=== PATIENT | female | born 1960 | race Caucasian/White ===

== ENCOUNTER 2017-07-03 11:33 | Day surgery (SDC) | payer BC ==
[2017-06-30 10:42] LABS: APPEARANCE,URINE SLIGHTLY-CLOUDY; BILIRUBIN,URINE NEGATIVE (NEGATIVE); GLUCOSE, URINE NEGATIVE (NEGATIVE); KETONES,URINE NEGATIVE (NEGATIVE); LEUKOCYTE ESTERASE,URINE NEGATIVE (NEGATIVE); NITRITE,URINE NEGATIVE (NEGATIVE); PROTEIN,URINE NEGATIVE (NEGATIVE); UROBILINOGEN,URINE NEGATIVE mg/dL (<2.0)
[2017-06-30 10:49] LABS: ABSOLUTE EOSINOPHILS # (AUTO) 0.2 10^3/uL (0.0-0.6); ABSOLUTE LYMPHOCYTES (AUTO) 1.3 10^3/uL (0.5-4.7); ABSOLUTE MONOCYTES (AUTO) 0.8 10^3/uL (0.1-1.4); ABSOLUTE NEUT (AUTO) 6.1 10^3/uL (1.7-8.2); BASOPHILS % (AUTO) 0.2 % (0-2); EOSINOPHILS % (AUTO) 2.4 % (0-6); HEMATOCRIT 37.5 % (36.0-47.0); HEMOGLOBIN 12.3 g/dL (12.0-15.5); HGB HCT DIFFERENCE -0.6; LYMPHOCYTES % (AUTO) 15.9 % (13-45); MEAN CORPUSCULAR HEMOGLOBIN 28.9 pg (27.0-33.4); MEAN CORPUSCULAR HGB CONC 32.8 g/dL (32.0-36.0); MEAN CORPUSCULAR VOLUME 88 fl (80-97); MONOCYTES % (AUTO) 9.7 % (3-13); RED BLOOD COUNT 4.27 10^6/uL (3.72-5.28); RED CELL DISTRIBUTION WIDTH 13.9 % (11.5-14.0); SEGMENTED NEUTROPHILS % (AUTO) 71.8 % (42-78); WHITE BLOOD COUNT 8.5 10^3/uL (4.0-10.5)
--- NOTE | 2017-06-30 11:10 | RADIOLOGY REPORT (SQ) ---
EXAM DESCRIPTION: CHEST PA/LATERAL COMPLETED DATE/TIME: 06/30/2017 10:45 am REASON FOR STUDY: PRE-OP COMPARISON: None. EXAM PARAMETERS: NUMBER OF VIEWS: two views TECHNIQUE: Digital Frontal and Lateral radiographic views of the chest acquired. RADIATION DOSE: NA LIMITATIONS: none FINDINGS: LUNGS AND PLEURA: No opacities, masses or pneumothorax. No pleural effusion. MEDIASTINUM AND HILAR STRUCTURES: No masses or contour abnormalities. HEART AND VASCULAR STRUCTURES: Heart normal size. No evidence for failure. BONES: No acute findings. HARDWARE: None in the chest. OTHER: No other significant finding. IMPRESSION: NO SIGNIFICANT RADIOGRAPHIC FINDING IN THE CHEST. TECHNICAL DOCUMENTATION: JOB ID: [id number] [employer]- All Rights Reserved
[2017-06-30 11:24] LABS: ANION GAP 12 (5-19); BLOOD UREA NITROGEN 17 mg/dL (7-20); CALCIUM 9.7 mg/dL (8.4-10.2); CARBON DIOXIDE 27 mmol/L (22-30); CHLORIDE 104 mmol/L (98-107); CREATININE RESULT 1.11 mg/dL (0.52-1.25); GLUCOSE 86 mg/dL (75-110); POTASSIUM 3.5 mmol/L (3.6-5.0); SODIUM 143.2 mmol/L (137-145)
--- NOTE | 2017-06-30 13:17 | EKG REPORT ---
SEVERITY:- BORDERLINE ECG - SINUS RHYTHM NONSPECIFIC ST CHANGES INFERIOR LEADS. : Confirmed by: Kody Myrick MD 30-Jun-2017 13:16:36
[2017-07-03] MEDS ORDERED: HYDROMORPHONE HCL INJ/PF 2 MG/ML AMPULE ONE ×2 (13:25→14:51)
[2017-07-03] MEDS ORDERED: IBUPROFEN INJ 800 MG/8 ML VIAL IV ONE (14:51)
[2017-07-03] MEDS ORDERED: ONDANSETRON HCL INJ/PF 4 MG/2 ML SDV ONE (14:51)
[2017-07-03] MEDS ORDERED: MIDAZOLAM 2 MG/2 ML INJ ONE (14:51)
[2017-07-03] MEDS ORDERED: FENTANYL CITRATE INJ/PF 250 MCG/5 ML AMPULE ONE (14:51)
[2017-07-03] MEDS ORDERED: PROPOFOL INJ 200 MG/20 ML VIAL IV ONE (14:51)
--- NOTE | 2017-07-03 17:14 | Operative Report ---
Operative Report DATE OF SURGERY: 07/03/17 PREOPERATIVE DIAGNOSIS: Left lateral tibial plateau fracture OPERATION: Open reduction and internal fixation left lateral tibial plateau fracture SURGEON: JOSUE FIGUEREDO ANESTHESIA: Spinal ESTIMATED BLOOD LOSS: 100 PROCEDURE: With the patient supine in the operating table the left lower extremities prepped and draped in a sterile fashion. The limb was elevated for exsanguination tourniquet inflated 280 torr. Upon making an hockey stick type incision over the proximal lateral tibia is clear that what we have is a venous tourniquet and a venous tourniquet kit is finally removed. The case continues. Sharp tissue dissection was used to carry incision down through the fascia and elevate the muscle off the lateral surface of the tibia. The book is open to allow a fracture reduction clamp to place a proximal pressure on the depressed articular fragment. A pin is then placed across the proximal tibia to hold the articular surface incongruity. Hydrocet is a mixed and injected in subchondral space to solidify the fracture reduction. Subsequently a Gayle 2 hole titanium lateral tibial plate is applied to lateral surface of the tibia. A pelvic reduction clamp was placed through the medial skin and over the plate to compress the fracture fragments. Subsequently 2 bicortical screws are placed distally and 4 locking screws were placed proximally. An oblique screws in place from distal lateral to proximal medial. The fracture reduction and hardware placement checked fluoroscopically felt to be adequate. The wound is irrigated with bulb lavage. Attempts to close the wound with interrupted Vicryl were met with frustration because of poor tissue characteristics. Subsequently #1 PDS suture is used to close the skin dermis and subcutaneous in a single layer. A compressive dressing was applied and the patient's return to the PACU in satisfactory condition.
--- NOTE | 2017-07-03 17:22 | RADIOLOGY REPORT (SQ) ---
EXAM DESCRIPTION: TIBIA FIBULA LEFT COMPLETED DATE/TIME: 07/03/2017 5:07 pm REASON FOR STUDY: ORIF L TIBIAL PLATEAU S82.121A DISP FX OF LATERAL CONDYLE OF RIGHT TIBIA, INIT FO R COMPARISON: None. FLUOROSCOPY TIME: 1 minute 4 images saved to PACS. TECHNIQUE: Intra-operative images acquired during surgical procedure to evaluate progress. NUMBER OF IMAGES: 4 image LIMITATIONS: None. FINDINGS: Fluoroscopic images were obtained during internal fixation of the left knee. Orthopedic h ardware is identified in position. IMPRESSION: IMAGE(S) OBTAINED DURING PROCEDURE. COMMENT: Quality ID [id number]: Final reports for procedures using fluoroscopy that document radiation exp osure indices, or exposure time and number of fluorographic images (if radiation exposure indices are not available) Please consult full operative report of the attending physician for description of the procedure. TECHNICAL DOCUMENTATION: JOB ID: [id number] [employer]- All Rights Reserved
--- NOTE | 2017-07-03 17:22 | RADIOLOGY REPORT (SQ) ---
EXAM DESCRIPTION: NO CHG FLUORO COMPLETE DATE/TIME: 07/03/2017 5:07 pm REASON FOR STUDY: ORIF L TIBIAL PLATEAU S82.121A DISP FX OF LATERAL CONDYLE OF RIGHT TIBIA, INIT FO R FINDINGS: Please see combined report for performance of procedure and radiologic supervision and int erpretation. IMPRESSION: Please see combined report for performance of procedure and radiologic supervision and i nterpretation.
[2017-07-03] MEDS ORDERED: PROMETHAZINE HCL INJ 25 MG/1 ML VIAL ONE (17:30)
[2017-07-03] MEDS: FENTANYL CITRATE INJ/PF 100 MCG/2 ML AMPUL IV PRN ×9 (19:06→19:09)
[2017-07-03] MEDS: DIPHENHYDRAMINE HCL 50 MG/ML VIAL IV PRN ×3 (19:06→19:09)
[2017-07-03] MEDS: CLINDAMYCIN 600 MG/D5W RTU 600 MG/50 ML RTUPB IV PRN ×4 (19:06→19:12)
[2017-07-03] MEDS: PROMETHAZINE HCL INJ 25 MG/1 ML VIAL IV PRN ×2 (19:06→19:08)
[2017-07-03] MEDS ORDERED: ONDANSETRON 4 MG TAB.RAPDIS PO PRN (19:48)
[2017-07-03] MEDS ORDERED: ACETAMINOPHEN 325 MG TABLET PO PRN (19:48)
[2017-07-03] MEDS ORDERED: RINGERS SOLUTION,LACTATED 1,000 ML IV PRN (19:49)
[2017-07-03] MEDS: OXYCODONE HCL IR 5 MG TABLET PO PRN (20:27)
[2017-07-03] MEDS: MORPHINE SULFATE 10 MG/ML INJ IV PRN ×2 (21:13→23:19)
[2017-07-03] MEDS: CLINDAMYCIN 600 MG/D5W RTU 600 MG/50 ML RTUPB IV SCH (21:13)
[2017-07-03] MEDS ORDERED: RIVAROXABAN 10 MG TABLET PO SCH (22:00)
[2017-07-04] MEDS: MORPHINE SULFATE 10 MG/ML INJ IV PRN ×2 (04:03→06:03)
[2017-07-04] MEDS: CLINDAMYCIN 600 MG/D5W RTU 600 MG/50 ML RTUPB IV SCH (06:03)
--- NOTE | 2017-07-04 06:49 | PDOC DISCHARGE SUMMARY ---
General - Admit/Disc Date/PCP Discharge Date: 07/04/17 - Discharge Diagnosis (1) Fracture of left tibial plateau Is this a current diagnosis for this admission?: Yes - Additional Information Resuscitation Status: Full Code Discharge Diet: As Tolerated, Regular Discharge Activity: Balance Activity w/Rest, No Driving, No tub bath, Other - Touchdown weightbearing restriction left lower extremity Home Medications: Ibuprofen [Motrin Ib] 1 tab PO PRN PRN 07/03/17 Oxycodone HCl [Oxy-Ir 5 mg Tablet] 5 mg PO Q6HP PRN tablet 07/04/17 Rivaroxaban [Xarelto 10 mg Tablet] 10 mg PO QHS tablet 07/04/17 History of Present Illness History of Present Illness: MICKI CANNON is a 56 year old female who slipped and fell and sustained a left tibial plateau fracture. She is admitted for elective open reduction internal fixation of such Hospital Course Hospital Course: Patient is admitted on 23 hour outpatient observation basis and undergoes a left tibial plateau fracture open reduction internal fixation. She tolerates this procedure without complication. She will return to the floor in satisfactory condition. Pain is well controlled. Patient will be seen by physical therapy for touchdown ambulation weightbearing restriction on the left lower extremity and then be discharged home. Physical Exam Vital Signs: Temp Pulse Resp BP Pulse Ox 36.7 C 85 19 139/76 H 98 07/04/17 03:42 07/04/17 03:42 07/04/17 03:42 07/04/17 03:42 07/04/17 03:42 Intake & Output 07/02/17 07/03/17 07/04/17 06:59 06:59 06:59 Intake Total 4490 Output Total 500 Balance 3990 General appearance: PRESENT: morbidly obese Head exam: PRESENT: normocephalic Respiratory exam: PRESENT: unlabored Cardiovascular exam: PRESENT: RRR Pulses: PRESENT: +1 pedal pulses bilateral Vascular exam: PRESENT: normal capillary refill Extremities exam: PRESENT: other - Left lower extremity dressing clean dry and intact. Distal neurovascular examination intact Neurological exam: PRESENT: alert, awake, oriented to person, oriented to place , oriented to time, oriented to situation. ABSENT: motor sensory deficit Psychiatric exam: PRESENT: appropriate affect, normal mood. ABSENT: homicidal ideation, suicidal ideation Skin exam: PRESENT: dry, intact, warm. ABSENT: cyanosis, rash Results Laboratory Results: 06/30/17 09:41 06/30/17 09:41 Impressions: Chest X-Ray 06/30/17 10:19 IMPRESSION: NO SIGNIFICANT RADIOGRAPHIC FINDING IN THE CHEST. Fluoroscopy 07/03/17 00:00 IMPRESSION: Please see combined report for performance of procedure and radiologic supervision and interpretation. Tibia/Fibula X-Ray 07/03/17 00:00 IMPRESSION: IMAGE(S) OBTAINED DURING PROCEDURE. Status: Imported from PACS Plan Discharge Plan: Patient be discharged home with home health nursing, home health physical therapy, wheeled walker, bedside commode. Visiting nurse service to change left knee picot dressing on postop day 7. Follow-up with Dr. Gould and [facility] for surgery in 2 weeks for suture removal.
[2017-07-04 06:56] LABS: ABSOLUTE EOSINOPHILS # (AUTO) 0.1 10^3/uL (0.0-0.6); ABSOLUTE LYMPHOCYTES (AUTO) 0.8 10^3/uL (0.5-4.7); ABSOLUTE MONOCYTES (AUTO) 0.8 10^3/uL (0.1-1.4); ABSOLUTE NEUT (AUTO) 8.1 10^3/uL (1.7-8.2); BASOPHILS % (AUTO) 0.3 % (0-2); EOSINOPHILS % (AUTO) 0.7 % (0-6); LYMPHOCYTES % (AUTO) 8.1 % (13-45); MEAN CORPUSCULAR HEMOGLOBIN 29.7 pg (27.0-33.4); MEAN CORPUSCULAR HGB CONC 34.4 g/dL (32.0-36.0); MEAN CORPUSCULAR VOLUME 86 fl (80-97); MONOCYTES % (AUTO) 8.3 % (3-13); RED CELL DISTRIBUTION WIDTH 13.4 % (11.5-14.0); SEGMENTED NEUTROPHILS % (AUTO) 82.6 % (42-78); WHITE BLOOD COUNT 9.7 10^3/uL (4.0-10.5)
[2017-07-04 07:11] LABS: ANION GAP 8 (5-19); BLOOD UREA NITROGEN 14 mg/dL (7-20); CALCIUM 8.7 mg/dL (8.4-10.2); CARBON DIOXIDE 30 mmol/L (22-30); CHLORIDE 103 mmol/L (98-107); GLUCOSE 111 mg/dL (75-110); POTASSIUM 3.9 mmol/L (3.6-5.0); SODIUM 140.6 mmol/L (137-145)
[2017-07-04] MEDS: OXYCODONE HCL IR 5 MG TABLET PO PRN (09:00)
[2017-07-04 16:08] VITALS: BP 145/99
== END 2017-07-04 13:35 | disposition home health service (06) ==
LOC: OROUT 11:33 → 4S 18:40 → OROUT 07-04 13:35
PROVIDERS: ATTEND Orthopaedic Surgery
PROC: 0QSH04Z Reposition Left Tibia with Internal Fixation Device, Open Approach (ICD-10-PCS; principal; 2017-07-03 14:00)
DX: S82.122A Displaced fracture of lateral condyle of left tibia, initial encounter for closed fracture (principal); V87.8XXA Person injured in other specified noncollision transport accidents involving motor vehicle (traffic), initial encounter; Z88.5 Allergy status to narcotic agent; Z88.2 Allergy status to sulfonamides; Z88.0 Allergy status to penicillin; Z88.1 Allergy status to other antibiotic agents; I10 Essential (primary) hypertension; E66.9 Obesity, unspecified; Z68.41 Body mass index [BMI] 40.0-44.9, adult
CPT/HCPCS: 93005; 36415 ×2; 85025 ×2; 80048 ×2; 81001; 71020; 73590; 93010; 97110; 97163; 27535; C1713 ×2; J2250; S0119; J3010; J2270 ×2; J1170; J2550; J2405; J7120; J2704; J1741; 01392

== ENCOUNTER 2018-08-07 01:16 | Inpatient (IN) | payer BC ==
[2018-08-07] MEDS ORDERED: GLUCAGON,HUMAN RECOMB 1 MG INJ IM PRN ×3 (02:14→22:58)
[2018-08-07] MEDS ORDERED: DEXTROSE 50%-WATER 25 GM/50 ML DISP.SYRIN IV PRN ×4 (02:14→05:15)
[2018-08-07] MEDS ORDERED: ONDANSETRON HCL INJ/PF 4 MG/2 ML SDV IV ONE (02:14)
[2018-08-07] MEDS ORDERED: DEXTROSE 40% GEL 15 GM TUBE PO PRN ×5 (02:14→22:58)
[2018-08-07] MEDS ORDERED: NORMAL SALINE 100 ML with INSULIN REGULAR, HUMAN 100 UNIT IV PRN ×4 (02:14→05:15)
[2018-08-07] MEDS ORDERED: FAMOTIDINE INJ/PF 20 MG/2 ML SDV IV ONE (02:14)
[2018-08-07] MEDS ORDERED: INSULIN REG, HUMAN 100 UNIT/ML 3 ML VIAL (PYX) IV ONE (02:16)
[2018-08-07] MEDS ORDERED: NORMAL SALINE 1000 ML 1,000 ML IV ONE ×2 (02:28→03:30)
--- NOTE | 2018-08-07 02:33 | ER Document Report ---
ED General - General Chief Complaint: Nausea/Vomiting Stated Complaint: VOMITING,DRY MOUTH Time Seen by Provider: 08/07/18 02:09 Mode of Arrival: Ambulatory Information source: Patient TRAVEL OUTSIDE OF THE [place] IN LAST 30 DAYS: No - HPI Notes: Patient is a 57-year-old female diagnosed 1 month ago with new onset diabetes and placed upon Glucophage and Actos presents with report of progressive weight loss over the last few months and nausea and vomiting starting 1 week ago and reports dyspnea starting this evening. The patient reports dry mouth and questions mild constipation. She reports no abdominal pain but after vomiting she did describe mild chest pain. She reports no fever or chills or hematemesis or recent antibiotics. The patient states that despite the Glucophage and Actos, her blood sugars have been running in the high 300s-400 range. Fingerstick blood sugar 453 in triage. Patient reports no cough or congestion. Family history diabetes. - Related Data Allergies/Adverse Reactions: codeine Allergy (Verified 06/30/17 10:29) Difficulty breathing erythromycin base Allergy (Verified 06/30/17 10:29) Difficulty breathing Penicillins Allergy (Verified 06/30/17 10:29) Difficulty breathing Sulfa (Sulfonamide Antibiotics) Allergy (Verified 06/30/17 10:29) Difficulty breathing Past Medical History - General Information source: Patient - Social History Smoking Status: Never Smoker Frequency of alcohol use: None Drug Abuse: None Lives with: Family Family History: DM - Past Medical History Cardiac Medical History: Reports: Hx Hypertension Denies: Hx Atrial Fibrillation, Hx Congestive Heart Failure, Hx Coronary Artery Disease, Hx Heart Attack, Hx Hypercholesterolemia, Hx Peripheral Vascular Disease, Hx Pulmonary Embolism, Hx Heart Murmur Pulmonary Medical History: Reports: Hx Bronchitis, Hx Pneumonia Denies: Hx Asthma, Hx COPD, Hx Respiratory Failure, Hx Sleep Apnea, Hx Tuberculosis Malignancy Medical History: Denies: Hx Lung Cancer Past Surgical History: Reports: Hx Cholecystectomy, Hx Tubal Ligation. Denies: Hx Appendectomy, Hx Bowel Surgery, Hx Section, Hx Coronary Artery Bypass Graft, Hx Gastric Bypass Surgery, Hx Herniorrhaphy, Hx Hysterectomy, Hx Mastectomy, Hx Pacemaker, Hx Tonsillectomy Review of Systems - Review of Systems -: Yes All other systems reviewed and negative Physical Exam - Vital signs Vitals: Temp Pulse Resp BP Pulse Ox 96.4 F L 122 H 28 H 151/108 H 100 08/07/18 01:48 08/07/18 01:48 08/07/18 01:48 08/07/18 01:48 08/07/18 01:48 - Notes Notes: PHYSICAL EXAMINATION: GENERAL: Tachypneic, mild distress with dry mouth. HEAD: Atraumatic, normocephalic. EYES: Pupils equal round and reactive to light, extraocular movements intact, conjunctiva are normal. ENT: Nares patent, oropharynx clear without exudates. Very dry mucous membranes. NECK: Normal range of motion, supple without lymphadenopathy LUNGS: Breath sounds clear to auscultation bilaterally and equal. No wheezes rales or rhonchi. HEART: Regular rhythm without murmurs. Tachycardic rate of 120. ABDOMEN: Soft, nontender, nondistended abdomen. No guarding, no rebound. No masses appreciated. Mild tenderness midepigastric to lower chest wall region. No rebound or guarding no pulsatile mass. Female : deferred Musculoskeletal: Normal range of motion, no pitting or edema. No cyanosis. NEUROLOGICAL: Cranial nerves grossly intact. Normal speech, normal gait. Normal sensory, motor exams PSYCH: Normal mood, normal affect. SKIN: Warm, Dry, normal turgor, no rashes or lesions noted. Course - Re-evaluation Re-evalutation: 08/07/18 02:35 Order was written for IV Zofran and Pepcid and normal saline bolus and 10 units of regular insulin for fingerstick blood sugar of 453. 08/07/18 05:21 After normal saline 1 L and 10 units of insulin, blood sugar came down to 370 on a repeat evaluation. Insulin drip was started and patient was given additional 1 L normal saline, with 100 mEq of sodium bicarb because patient's serum bicarb was only 5 and her venous blood gas pH was 7.02. Patient had symptomatic improvement after the second liter of normal saline with bicarb, and respiratory rate improved and her pulse rate came down to 106 at the bedside. Repeat abdominal exam patient was nontender. Discussion was undertaken with the patient and her and they were in agreement with admission for further evaluation and management. Is no obvious evidence for pneumonia or congestive heart failure or acute CT or ischemia or acute kidney injury or anemia or UTI. Discussion was undertaken with the hospitalist Dr. Mandujano, and he agreed to evaluate the patient further for admission. 08/07/18 05:25 - Vital Signs Vital signs: Temp Pulse Resp BP Pulse Ox 96.4 F L 122 H 28 H 151/108 H 100 08/07/18 01:48 08/07/18 01:48 08/07/18 01:48 08/07/18 01:48 08/07/18 02:12 - Laboratory Result Diagrams: 08/07/18 02:55 08/07/18 02:55 Laboratory results interpreted by me: 08/07/18 08/07/18 08/07/18 02:02 02:55 02:55 WBC 15.9 H RBC 5.95 H Hgb 17.3 H Hct 52.9 H RDW 16.0 H Seg Neuts % (Manual) 85 H Lymphocytes % (Manual) 7 L Abs Neuts (Manual) 13.5 H VBG pH VBG pCO2 VBG HCO3 Carbon Dioxide 5 L* Anion Gap 31 H Est GFR ( Amer) 54 L Est GFR (Non-Af Amer) 44 L Glucose 522 H* POC Glucose 453 H* Hemoglobin A1c % Direct Bilirubin 0.5 H Alkaline Phosphatase 185 H Total Protein 9.1 H Urine Protein Urine Glucose (UA) Urine Ketones Urine Blood 08/07/18 08/07/18 08/07/18 02:55 02:55 04:20 WBC RBC Hgb Hct RDW Seg Neuts % (Manual) Lymphocytes % (Manual) Abs Neuts (Manual) VBG pH 7.02 L* VBG pCO2 25.3 L VBG HCO3 6.3 L Carbon Dioxide Anion Gap Est GFR ( Amer) Est GFR (Non-Af Amer) Glucose POC Glucose 372 H Hemoglobin A1c % 11.1 H Direct Bilirubin Alkaline Phosphatase Total Protein Urine Protein Urine Glucose (UA) Urine Ketones Urine Blood 08/07/18 04:30 WBC RBC Hgb Hct RDW Seg Neuts % (Manual) Lymphocytes % (Manual) Abs Neuts (Manual) VBG pH VBG pCO2 VBG HCO3 Carbon Dioxide Anion Gap Est GFR ( Amer) Est GFR (Non-Af Amer) Glucose POC Glucose Hemoglobin A1c % Direct Bilirubin Alkaline Phosphatase Total Protein Urine Protein 100 H Urine Glucose (UA) >=500 H Urine Ketones 80 H Urine Blood MODERATE H - EKG Interpretation by Me EKG shows normal: Sinus rhythm Rate: Tachycardia Additional EKG results interpreted by me: 08/07/18 02:48 EKG as interpreted by me showed sinus tachycardia with rate of 114. There is no gross evidence for acute CT or ischemia noted. There is no significant changes compared to previous EKG reviewed from 06/30/17. Critical Care Note - Critical Care Note Total time excluding time spent on procedures (mins): 46 Discharge - Discharge Clinical Impression: Dehydration DKA (diabetic ketoacidoses) Qualifiers: Diabetes mellitus type: type 2 Diabetes mellitus complication detail: without coma Qualified Code(s): E11.10 - Type 2 diabetes mellitus with ketoacidosis without coma Vomiting Qualifiers: Vomiting type: unspecified Vomiting Intractability: non-intractable Nausea presence: with nausea Qualified Code(s): R11.2 - Nausea with vomiting, unspecified Condition: Fair Disposition: ADMITTED INPATIENT
[2018-08-07 03:15] LABS: HEMATOCRIT 52.9 % (36.0-47.0); HEMOGLOBIN 17.3 g/dL (12.0-15.5); MEAN CORPUSCULAR HEMOGLOBIN 29.1 pg (27.0-33.4); MEAN CORPUSCULAR HGB CONC 32.7 g/dL (32.0-36.0); MEAN CORPUSCULAR VOLUME 89 fl (80-97); PLATELET COUNT 266 10^3/uL (150-450); RED BLOOD COUNT 5.95 10^6/uL (3.72-5.28); WHITE BLOOD COUNT 15.9 10^3/uL (4.0-10.5)
[2018-08-07 03:16] LABS: VENOUS BLOOD BASE EXCESS -23.4 mmol/L; VENOUS BLOOD HCO3 6.3 mmol/L (20-32); VENOUS BLOOD PCO2 25.3 mmHg (35-63)
[2018-08-07 03:19] LABS: VENOUS BLOOD PH 7.02 (7.30-7.42)
[2018-08-07] MEDS ORDERED: SODIUM BICARBONATE 4.2% INJ (2.5 MEQ/5 ML) VIAL INJ ONE (03:30)
[2018-08-07 03:33] LABS: ABSOLUTE LYMPHOCYTES# (MANUAL) 1.1 10^3/uL (0.5-4.7); ABSOLUTE MONOCYTES # (MANUAL) 1.1 10^3/uL (0.1-1.4); ABSOLUTE NEUTROPHILS# (MANUAL) 13.5 10^3/uL (1.7-8.2); ALANINE AMINOTRANSFERASE 22 U/L (9-52); ALBUMIN 4.9 g/dL (3.5-5.0); ALKALINE PHOSPHATASE 185 U/L (38-126); ASPARTATE AMINO TRANSFERASE 20 U/L (14-36); BASOPHILS % (MANUAL) 0 % (0-2); BILIRUBIN,DIRECT 0.5 mg/dL (0.0-0.4); BILIRUBIN,TOTAL 0.8 mg/dL (0.2-1.3); BLOOD UREA NITROGEN 12 mg/dL (7-20); CHLORIDE 106 mmol/L (98-107); EOSINOPHILS % (MANUAL) 1 % (0-6); LIPASE 107.3 U/L (23-300); LYMPHOCYTES % (MANUAL) 7 % (13-45); MONOCYTES % (MANUAL) 7 % (3-13); POTASSIUM 4.8 mmol/L (3.6-5.0); SEGMENTED NEUTROPHILS % (MAN) 85 % (42-78); SODIUM 141.6 mmol/L (137-145); TOTAL CELLS COUNTED 100; TOTAL PROTEIN 9.1 g/dL (6.3-8.2)
[2018-08-07 03:37] LABS: ANISOCYTOSIS 1+; HELMET CELLS SLIGHT; PLATELET COMMENT ADEQUATE; POIKILOCYTOSIS SLIGHT; TEAR DROP CELLS SLIGHT
[2018-08-07 03:46] LABS: TROPONIN I 0.014 ng/mL
[2018-08-07 04:00] LABS: GLUCOSE 522 mg/dL (75-110)
[2018-08-07 04:01] LABS: CARBON DIOXIDE 5 mmol/L (22-30)
[2018-08-07] MEDS ORDERED: SODIUM BICARBONATE 8.4% INJ 50 MEQ/50 ML DISP.SYRIN IV ONE (04:05)
[2018-08-07 04:14] LABS: ANION GAP 31 (5-19)
--- NOTE | 2018-08-07 04:33 | RADIOLOGY REPORT (SQ) ---
EXAM DESCRIPTION: XR CHEST 1 VIEW COMPLETED DATE/TME: 08/07/2018 02:29 CLINICAL HISTORY: CP, dyspnea COMPARISON: 06/30/2016 FINDINGS: Single frontal view of the chest. Leads overlie the chest. Tortuosity of the thoracic aorta. Heart is not enlarged. Low lung volumes. No consolidation, pneumothorax, or pleural effusion. No displaced rib fractures identified. Upper abdominal soft tissues are unremarkable. IMPRESSION: 1. No acute pulmonary process identified.
[2018-08-07] MEDS ORDERED: INSULIN REG, HUMAN 100 UNIT/ML 3 ML VIAL (PYX) ONE (05:00)
[2018-08-07 05:01] LABS: APPEARANCE,URINE SLIGHTLY-CLOUDY; BILIRUBIN,URINE NEGATIVE (NEGATIVE); COLOR,URINE YELLOW; GLUCOSE, URINE >=500 mg/dL (NEGATIVE); KETONES,URINE 80 mg/dL (NEGATIVE); LEUKOCYTE ESTERASE,URINE NEGATIVE (NEGATIVE); NITRITE,URINE NEGATIVE (NEGATIVE); PROTEIN,URINE 100 mg/dL (NEGATIVE); URINE SPECIFIC GRAVITY 1.021; UROBILINOGEN,URINE NEGATIVE mg/dL (<2.0)
[2018-08-07] MEDS ORDERED: IPRATROPIUM/ALBUTEROL 0.5-2.5 MG/3 ML AMPUL NEB PRN (05:15)
[2018-08-07] MEDS ORDERED: NORMAL SALINE 1000 ML 1,000 ML IV SCH (05:15)
[2018-08-07] MEDS ORDERED: MAG HYDROX/AL HYDROX/SIMETH SUSP 30 ML UDCUP PO PRN (05:15)
[2018-08-07] MEDS ORDERED: HEPARIN SOD (PORCINE) 5,000 UNIT/ML 1 ML SYRINGE SUBCUT SCH (06:00)
[2018-08-07] MEDS: NORMAL SALINE 1000 ML 1,000 ML IV SCH ×7 (06:37→21:04)
--- NOTE | 2018-08-07 07:02 | PDOC H&P ---
History of Present Illness Admission Date/PCP: 08/07/18 06:34 Patient complains of: Abdominal pain and nausea History of Present Illness: MICKI CANNON is a 57 year old female with a past medical history of diabetes, presents with 48 hours of abdominal pain, nausea, vomiting of gastric content. Associated with hyperglycemia, polyuria and polydipsia. In the emergency room she is found to have severe diabetic ketoacidosis with bicarb less than 5, pH of 7.0. She started on normal saline and insulin and referred to the hospitalist for admission. Patient denies recent illness or missed medications though was recently started on increased dose of metformin. She denies previous history of the same. Past Medical History Cardiac Medical History: Reports: Hypertension Denies: Atrial Fibrillation, Congestive Heart Failure, Coronary Artery Disease, Myocardial Infarction, Hyperlipidema, Peripheral Vascular Disease, Pulmonary Embolism, Heart Murmur Pulmonary Medical History: Reports: Bronchitis, Pneumonia Denies: Asthma, Chronic Obstructive Pulmonary Disease (COPD), Respiratory Failure, Sleep Apnea, Tuberculosis Endocrine Medical History: Reports: Diabetes Mellitus Type 2 Malignancy Medical History: Denies: Lung Cancer Past Surgical History Past Surgical History: Reports: Cholecystectomy, Tubal Ligation Denies: Appendectomy, Section, Coronary Artery Bypass Graft, Gastric Bypass Surgery, Herniorrhaphy, Hysterectomy, Mastectomy, Pacemaker, Tonsillectomy Social History Information Source: Patient Lives with: Family Smoking Status: Never Smoker Frequency of Alcohol Use: None Hx Recreational Drug Use: No Drugs: None Hx Prescription Drug Abuse: No - Advance Directive Resuscitation Status: Full Code Family History Family History: CAD, DM Parental Family History Reviewed: Yes Children Family History Reviewed: Yes Sibling(s) Family History Reviewed.: Yes Medication/Allergy Home Medications: Ibuprofen [Motrin Ib] 1 tab PO PRN PRN 07/03/17 Oxycodone HCl [Oxy-Ir 5 mg Tablet] 5 mg PO Q6HP PRN tablet 07/04/17 Rivaroxaban [Xarelto 10 mg Tablet] 10 mg PO QHS tablet 07/04/17 Allergies/Adverse Reactions: codeine Allergy (Verified 06/30/17 10:29) Difficulty breathing erythromycin base Allergy (Verified 06/30/17 10:29) Difficulty breathing Penicillins Allergy (Verified 06/30/17 10:29) Difficulty breathing Sulfa (Sulfonamide Antibiotics) Allergy (Verified 06/30/17 10:29) Difficulty breathing Review of Systems Constitutional: PRESENT: as per HPI, anorexia, fatigue, weakness, weight loss Eyes: ABSENT: visual disturbances Ears: ABSENT: hearing changes Cardiovascular: ABSENT: chest pain, dyspnea on exertion, edema, orthropnea, palpitations Respiratory: PRESENT: as per HPI. ABSENT: cough, dyspnea, hemoptysis Gastrointestinal: PRESENT: as per HPI, abdominal pain, bloating, nausea, vomiting. ABSENT: constipation, melena Genitourinary: ABSENT: dysuria, hematuria Musculoskeletal: ABSENT: joint swelling Integumentary: ABSENT: rash, wounds Neurological: ABSENT: abnormal gait, abnormal speech, confusion, dizziness, focal weakness, syncope Psychiatric: ABSENT: anxiety, depression, homidical ideation, suicidal ideation Endocrine: ABSENT: cold intolerance, heat intolerance, polydipsia, polyuria Hematologic/Lymphatic: ABSENT: easy bleeding, easy bruising Physical Exam Vital Signs: Temp Pulse Resp BP Pulse Ox 96.4 F L 122 H 22 H 161/87 H 100 08/07/18 01:48 08/07/18 01:48 08/07/18 06:01 08/07/18 06:01 08/07/18 06:01 General appearance: PRESENT: cooperative, obese, severe distress. ABSENT: disheveled Head exam: PRESENT: atraumatic, normocephalic Eye exam: PRESENT: conjunctiva pink, EOMI, PERRLA. ABSENT: scleral icterus Ear exam: PRESENT: normal external ear exam Mouth exam: PRESENT: dry mucosa, neck supple. ABSENT: laceration Neck exam: ABSENT: carotid bruit, JVD, lymphadenopathy, thyromegaly Respiratory exam: PRESENT: accessory muscle use, clear to auscultation lesley, tachypnea. ABSENT: rales, rhonchi, wheezes Cardiovascular exam: PRESENT: RRR, tachycardia. ABSENT: diastolic murmur, rubs , systolic murmur Pulses: PRESENT: normal dorsalis pedis pul Vascular exam: PRESENT: normal capillary refill GI/Abdominal exam: PRESENT: normal bowel sounds, soft. ABSENT: distended, guarding, mass, organolmegaly, rebound, tenderness Rectal exam: PRESENT: deferred Extremities exam: PRESENT: full ROM. ABSENT: calf tenderness, clubbing, pedal edema Neurological exam: PRESENT: alert, awake, oriented to person, oriented to place , oriented to time, oriented to situation, CN II-XII grossly intact. ABSENT: motor sensory deficit Psychiatric exam: PRESENT: appropriate affect, normal mood. ABSENT: homicidal ideation, suicidal ideation Skin exam: PRESENT: dry, intact, warm. ABSENT: cyanosis, rash Results Impressions: Chest X-Ray 08/07/18 02:29 IMPRESSION: 1. No acute pulmonary process identified. Assessment & Plan - Diagnosis (1) DKA (diabetic ketoacidoses) Qualifiers: Diabetes mellitus type: type 2 Diabetes mellitus complication detail: without coma Qualified Code(s): E11.10 - Type 2 diabetes mellitus with ketoacidosis without coma Is this a current diagnosis for this admission?: Yes Plan: Diabetic ketoacidosis patient has had some degree of polyuria polydipsia with nausea and uncontrolled hyperglycemia with supporting labs. Patient will receive IV fluids IV insulin serial chemistries every 6 hours for evaluation for electrolyte repletion. Continued evaluation for underlying cause if not found Patient will require diabetic education and consideration of mental health evaluation. (2) Dehydration Is this a current diagnosis for this admission?: Yes Plan: Aggressive IV fluid hydration. (3) Vomiting Qualifiers: Vomiting type: unspecified Vomiting Intractability: non-intractable Nausea presence: with nausea Qualified Code(s): R11.2 - Nausea with vomiting, unspecified Is this a current diagnosis for this admission?: Yes Plan: Secondary to #1 symptomatic management - Time Time Spent: 50 to 70 Minutes - Inpatient Certification Medical Necessity: Need Close Monitoring Due to Risk of Patient Decompensation
--- NOTE | 2018-08-07 07:55 | EKG REPORT ---
SEVERITY:- ABNORMAL ECG - SINUS TACHYCARDIA LAD, CONSIDER LEFT ANTERIOR FASCICULAR BLOCK : Confirmed by: Kody Myrick MD 07-Aug-2018 07:55:27
[2018-08-07] MEDS: ONDANSETRON HCL INJ/PF 4 MG/2 ML SDV IV PRN (08:02)
[2018-08-07 08:19] LABS: ABSOLUTE BASOPHILS # (AUTO) 0.1 10^3/uL (0.0-0.2); ABSOLUTE EOSINOPHILS # (AUTO) 0.1 10^3/uL (0.0-0.6); ABSOLUTE LYMPHOCYTES (AUTO) 1.1 10^3/uL (0.5-4.7); ABSOLUTE MONOCYTES (AUTO) 1.1 10^3/uL (0.1-1.4); ABSOLUTE NEUT (AUTO) 12.3 10^3/uL (1.7-8.2); BASOPHILS % (AUTO) 0.4 % (0-2); EOSINOPHILS % (AUTO) 0.6 % (0-6); HEMATOCRIT 47.5 % (36.0-47.0); LYMPHOCYTES % (AUTO) 7.2 % (13-45); MEAN CORPUSCULAR HEMOGLOBIN 28.9 pg (27.0-33.4); MEAN CORPUSCULAR HGB CONC 33.8 g/dL (32.0-36.0); MEAN CORPUSCULAR VOLUME 86 fl (80-97); MONOCYTES % (AUTO) 7.8 % (3-13); PLATELET COUNT 190 10^3/uL (150-450); RED BLOOD COUNT 5.54 10^6/uL (3.72-5.28); RED CELL DISTRIBUTION WIDTH 15.6 % (11.5-14.0); TOTAL CELLS COUNTED % (AUTO) 100 %; WHITE BLOOD COUNT 14.7 10^3/uL (4.0-10.5)
[2018-08-07 08:32] LABS: BLOOD UREA NITROGEN 12 mg/dL (7-20); GLUCOSE 253 mg/dL (75-110)
[2018-08-07 08:38] LABS: CHLORIDE 113 mmol/L (98-107); SODIUM 147.4 mmol/L (137-145)
[2018-08-07 08:40] LABS: POTASSIUM 3.3 mmol/L (3.6-5.0)
[2018-08-07 08:41] LABS: ANION GAP 26 (5-19); CARBON DIOXIDE 8 mmol/L (22-30)
[2018-08-07 08:54] LABS: ANISOCYTOSIS SLIGHT; PLATELET COMMENT ADEQUATE; TOXIC GRANULATION 1+; TOXIC VACUOLATION PRESENT
[2018-08-07] MEDS: DEXTROSE 5%-WATER 1000 ML 1,000 ML with SODIUM BICARBONATE 150 MEQ IV PRN ×6 (09:27→19:31)
[2018-08-07 09:42] LABS: VENOUS BLOOD BASE EXCESS -16.5 mmol/L; VENOUS BLOOD HCO3 9.9 mmol/L (20-32); VENOUS BLOOD PCO2 26.3 mmHg (35-63)
[2018-08-07 09:45] LABS: VENOUS BLOOD PH 7.19 (7.30-7.42)
[2018-08-07 13:25] LABS: ANION GAP 14 (5-19); BLOOD UREA NITROGEN 11 mg/dL (7-20); CALCIUM 8.7 mg/dL (8.4-10.2); CARBON DIOXIDE 17 mmol/L (22-30); CHLORIDE 114 mmol/L (98-107); GLUCOSE 135 mg/dL (75-110); SODIUM 145.1 mmol/L (137-145)
[2018-08-07 13:29] LABS: POTASSIUM 2.9 mmol/L (3.6-5.0)
[2018-08-07] MEDS: POTASSIUM CHLORIDE 20 MEQ/50 ML RTU IV SCH ×2 (14:58→17:26)
[2018-08-07 17:17] LABS: ANION GAP 9 (5-19); BLOOD UREA NITROGEN 9 mg/dL (7-20); CALCIUM 8.3 mg/dL (8.4-10.2); CARBON DIOXIDE 23 mmol/L (22-30); CHLORIDE 110 mmol/L (98-107); GLUCOSE 112 mg/dL (75-110); SODIUM 141.6 mmol/L (137-145)
[2018-08-07 17:21] LABS: POTASSIUM 2.7 mmol/L (3.6-5.0)
[2018-08-07] MEDS ORDERED: RIVAROXABAN 10 MG TABLET PO SCH (22:00)
[2018-08-07 22:03] LABS: ANION GAP 10 (5-19); BLOOD UREA NITROGEN 7 mg/dL (7-20); CALCIUM 8.2 mg/dL (8.4-10.2); CARBON DIOXIDE 24 mmol/L (22-30); CHLORIDE 105 mmol/L (98-107); GLUCOSE 81 mg/dL (75-110); SODIUM 139.4 mmol/L (137-145)
[2018-08-07 22:07] LABS: POTASSIUM 2.6 mmol/L (3.6-5.0)
[2018-08-07] MEDS ORDERED: INSULIN GLARGINE,HUM.REC.ANLOG 1,000 UNIT/10 ML UNIT SUBCUT ONE ×3 (22:39→23:00)
[2018-08-07] MEDS ORDERED: POTASSI CL 20 MEQ/50 ML RIDER 20 MEQ/50 ML RTUPB IV ONE (22:45)
[2018-08-07] MEDS ORDERED: NORMAL SALINE 1000 ML 1,000 ML IV PRN (22:56)
[2018-08-07] MEDS ORDERED: DEXTROSE 50%-WATER SYRINGE 25 GM/50 ML DOSE IV PRN (22:58)
[2018-08-07] MEDS ORDERED: DEXTROSE 50%-WATER SYRINGE 12.5 GM/25 ML DOSE IV PRN (22:58)
[2018-08-07] MEDS ORDERED: DEXTROSE 40% GEL 15 GM TUBE X 2 PO PRN (22:58)
[2018-08-07] MEDS ORDERED: POTASSIUM CHLORIDE 20 MEQ/50 ML RTU IV ONE (23:00)
[2018-08-07] MEDS ORDERED: POTASSIUM CHLORIDE 10 MEQ CAPSULE.ER PO ONE (23:00)
[2018-08-08] MEDS: INSULIN LISPRO 100 UNIT/ML 3 ML VIAL SUBCUT PRN ×4 (00:49→18:58)
[2018-08-08 03:26] LABS: ANION GAP 11 (5-19); BLOOD UREA NITROGEN 5 mg/dL (7-20); CALCIUM 8.2 mg/dL (8.4-10.2); CARBON DIOXIDE 25 mmol/L (22-30); CHLORIDE 102 mmol/L (98-107); GLUCOSE 229 mg/dL (75-110); SODIUM 138.2 mmol/L (137-145)
[2018-08-08 04:03] LABS: POTASSIUM 2.6 mmol/L (3.6-5.0)
[2018-08-08] MEDS ORDERED: POTASSIUM CHLORIDE 20 MEQ/15 ML UDCUP ONE (04:11)
[2018-08-08] MEDS ORDERED: POTASSI CL 20 MEQ/50 ML RIDER 20 MEQ/50 ML RTUPB IV ONE (04:11)
[2018-08-08] MEDS ORDERED: POTASSIUM CHLORIDE 20 MEQ/15 ML UDCUP PO ONE (04:15)
[2018-08-08] MEDS ORDERED: POTASSIUM CHLORIDE 20 MEQ/50 ML RTU IV ONE (04:15)
[2018-08-08] MEDS: ONDANSETRON HCL INJ/PF 4 MG/2 ML SDV IV PRN ×2 (04:57→14:08)
[2018-08-08 06:54] LABS: ANION GAP 11 (5-19); BLOOD UREA NITROGEN 4 mg/dL (7-20); CALCIUM 8.3 mg/dL (8.4-10.2); CARBON DIOXIDE 26 mmol/L (22-30); CHLORIDE 101 mmol/L (98-107); GLUCOSE 196 mg/dL (75-110); POTASSIUM 3.1 mmol/L (3.6-5.0); SODIUM 137.8 mmol/L (137-145)
[2018-08-08 07:24] LABS: ABSOLUTE LYMPHOCYTES (AUTO) 0.8 10^3/uL (0.5-4.7); ABSOLUTE MONOCYTES (AUTO) 1.4 10^3/uL (0.1-1.4); ABSOLUTE NEUT (AUTO) 10.6 10^3/uL (1.7-8.2); BASOPHILS % (AUTO) 0.2 % (0-2); HEMATOCRIT 37.8 % (36.0-47.0); LYMPHOCYTES % (AUTO) 5.9 % (13-45); MEAN CORPUSCULAR HGB CONC 35.4 g/dL (32.0-36.0); MONOCYTES % (AUTO) 11.3 % (3-13); PLATELET COUNT 140 10^3/uL (150-450); RED BLOOD COUNT 4.62 10^6/uL (3.72-5.28); SEGMENTED NEUTROPHILS % (AUTO) 82.6 % (42-78); TOTAL CELLS COUNTED % (AUTO) 100 %; WHITE BLOOD COUNT 12.9 10^3/uL (4.0-10.5)
[2018-08-08 07:28] LABS: HEMOGLOBIN 13.4 g/dL (12.0-15.5)
[2018-08-08 07:29] LABS: MEAN CORPUSCULAR VOLUME 82 fl (80-97)
[2018-08-08] MEDS ORDERED: INSULIN GLARGINE,HUM.REC.ANLOG 1,000 UNIT/10 ML UNIT SUBCUT ONE (13:00)
[2018-08-08 13:08] LABS: ANION GAP 9 (5-19); BLOOD UREA NITROGEN 3 mg/dL (7-20); CALCIUM 8.4 mg/dL (8.4-10.2); CARBON DIOXIDE 30 mmol/L (22-30); CHLORIDE 99 mmol/L (98-107); GLUCOSE 231 mg/dL (75-110); SODIUM 138.1 mmol/L (137-145)
[2018-08-08 13:12] LABS: POTASSIUM 2.7 mmol/L (3.6-5.0)
[2018-08-08] MEDS: POTASSI CL 20 MEQ/1/2NS 1L 20 MEQ/1,000 ML RTUINJ IV PRN ×3 (13:31→23:10)
--- NOTE | 2018-08-08 13:41 | PDOC PROGRESS REPORT ---
Subjective Progress Note for:: 08/08/18 Subjective:: Arabella Conrad is a 57-year-old female who presented to the emergency room with a 2 -day history of increasing abdominal pain, nausea with vomiting and general malaise. She admitted to having associated symptoms of hyperglycemia with her home blood sugars reading high as well as polyuria and polydipsia. In the emergency room she was found to have a severe acidosis with a pH of 7.09 and a bicarbonate of 5. Her urine was ketone positive and with these findings she was admitted for treatment of her acute diabetic ketoacidosis. She was started on normal saline with 1 L/h boluses and an insulin drip per protocol. Her past medical history is positive for diabetes mellitus type 2 for which she is taking only metformin twice daily and hypertension for which she has discontinued taking her medication because she does not like to take pills. After admission she had repeat ABGs which showed only minimal improvement. She was subsequently treated with a bicarbonate drip in addition to her insulin drip and IV fluids. This worked well to improve her acidosis and bicarbonate deficit over the next several hours. 08/08/18: Wrist states that she still feels fairly nauseated but is not having any vomiting today however food does not look very appetizing to her at the present time. She denies abdominal pain, diarrhea, chest pain, dyspepsia, dysphagia, dyspnea, diaphoresis and the sensation of fever or chills. Her oral intake and her level of activity have been less than adequate. She is awake and reasonably alert however she appears to be drowsy and admits that she feels tired and sleeps very easily. She denies heat and cold intolerance upon questioning. Reason For Visit: DKA Physical Exam Vital Signs: Temp Pulse Resp BP Pulse Ox 98.2 F 99 17 125/90 H 94 08/08/18 12:00 08/08/18 12:00 08/08/18 12:00 08/08/18 12:00 08/08/18 12:00 Intake & Output 08/06/18 08/07/18 08/08/18 23:59 23:59 23:59 Intake Total 7006 100 Output Total 2950 1710 Balance 4056 -1610 Weight 130.3 kg 132.4 kg General appearance: PRESENT: no acute distress, cooperative, morbidly obese, other - Drowsy during exam. Head exam: PRESENT: atraumatic, normocephalic Eye exam: ABSENT: conjunctival injection, periorbital swelling, scleral icterus Ear exam: PRESENT: normal external ear exam. ABSENT: drainage Mouth exam: PRESENT: dry mucosa, tongue midline Neck exam: ABSENT: thyromegaly, tracheal deviation Respiratory exam: PRESENT: clear to auscultation lesley, symmetrical, unlabored Cardiovascular exam: PRESENT: RRR, tachycardia - 104. ABSENT: clicks, gallop, rubs Pulses: PRESENT: normal radial pulses, normal dorsalis pedis pul Vascular exam: PRESENT: normal capillary refill. ABSENT: pallor GI/Abdominal exam: PRESENT: normal bowel sounds, soft Rectal exam: PRESENT: deferred - [id number] Extremities exam: ABSENT: joint swelling, pedal edema Musculoskeletal exam: PRESENT: full ROM, normal inspection Neurological exam: PRESENT: alert, awake, oriented to person, oriented to place , oriented to time, oriented to situation, CN II-XII grossly intact. ABSENT: motor sensory deficit Psychiatric exam: PRESENT: depressed, flat affect Skin exam: ABSENT: jaundice, rash, urticaria Results Laboratory Results: 08/08/18 07:17 08/07/18 08/07/18 08/07/18 12:39 16:05 20:14 WBC RBC Hgb Hct MCV MCH MCHC RDW Plt Count Seg Neutrophils % Lymphocytes % Monocytes % Eosinophils % Basophils % Absolute Neutrophils Absolute Lymphocytes Absolute Monocytes Absolute Eosinophils Absolute Basophils Sodium 145.1 H 141.6 139.4 Potassium 2.9 L* 2.7 L* 2.6 L* Chloride 114 H 110 H 105 Carbon Dioxide 17 L 23 24 Anion Gap 14 9 10 BUN 11 9 7 Creatinine 0.70 0.64 0.59 Est GFR ( Amer) > 60 > 60 > 60 Est GFR (Non-Af Amer) > 60 > 60 > 60 Glucose 135 H 112 H 81 Calcium 8.7 8.3 L 8.2 L 08/08/18 08/08/18 08/08/18 01:57 06:10 06:10 WBC Cancelled RBC Cancelled Hgb Cancelled Hct Cancelled MCV Cancelled MCH Cancelled MCHC Cancelled RDW Cancelled Plt Count Cancelled Seg Neutrophils % Cancelled Lymphocytes % Cancelled Monocytes % Cancelled Eosinophils % Cancelled Basophils % Cancelled Absolute Neutrophils Cancelled Absolute Lymphocytes Cancelled Absolute Monocytes Cancelled Absolute Eosinophils Cancelled Absolute Basophils Cancelled Sodium 138.2 137.8 Potassium 2.6 L* 3.1 L Chloride 102 101 Carbon Dioxide 25 26 Anion Gap 11 11 BUN 5 L 4 L Creatinine 0.60 0.57 Est GFR ( Amer) > 60 > 60 Est GFR (Non-Af Amer) > 60 > 60 Glucose 229 H 196 H Calcium 8.2 L 8.3 L 08/08/18 07:17 WBC 12.9 H RBC 4.62 Hgb 13.4 D Hct 37.8 MCV 82 D MCH 29.0 MCHC 35.4 RDW 15.0 H Plt Count 140 L Seg Neutrophils % 82.6 H Lymphocytes % 5.9 L Monocytes % 11.3 Eosinophils % 0.0 Basophils % 0.2 Absolute Neutrophils 10.6 H Absolute Lymphocytes 0.8 Absolute Monocytes 1.4 Absolute Eosinophils 0.0 Absolute Basophils 0.0 Sodium Potassium Chloride Carbon Dioxide Anion Gap BUN Creatinine Est GFR ( Amer) Est GFR (Non-Af Amer) Glucose Calcium Impressions: Chest X-Ray 08/07/18 02:29 IMPRESSION: 1. No acute pulmonary process identified. Assessment & Plan - Diagnosis (1) DKA (diabetic ketoacidoses) Qualifiers: Diabetes mellitus type: type 2 Diabetes mellitus complication detail: without coma Qualified Code(s): E11.10 - Type 2 diabetes mellitus with ketoacidosis without coma Is this a current diagnosis for this admission?: Yes Plan: Ms. Graham bicarbonate has returned to a normal level and her acidosis appears to be resolved however she continues to have decreased oral intake due to her nausea and that she persists in being relatively hypovolemic. Additionally she is noted to have a significant potassium deficit after the insulin drip and will require repletion of her potassium with IV fluids instead of orally due to her poor intake. IV fluid will be changed to half-normal saline with 20 mEq of KCl per liter and will be continued at 250 mL/h. Her DKA will be followed with morning laboratory. Morning laboratory for tomorrow will be a CBC, a BMP, magnesium level, a TSH level and a venous blood gas. (2) Diabetes mellitus type 2 in obese Is this a current diagnosis for this admission?: Yes Plan: Ms. Paniaguas hemoglobin A1c was found to be 11.1 thus her diabetic regimen of metformin twice daily at home has not been adequate to control her diabetes. I will initiate therapy with Lantus at 0.3 units/kg/day subcu in divided doses given every 12 hours initially. Her sliding scale will be continued at this point during her hospitalization as she still is not eating very well. Adjustments to insulin dosage will be made as appropriate and forward. (3) Essential hypertension Is this a current diagnosis for this admission?: Yes Plan: Arabella admits that she has high blood pressure but has not been taking her medications because she does not like to take pills. She does not remember what she is supposed to be taking for her high blood pressure. A new antihypertensive regiment will be started utilizing lisinopril 20 mg p.o. daily. (4) Vomiting Qualifiers: Vomiting type: unspecified Vomiting Intractability: non-intractable Nausea presence: with nausea Qualified Code(s): R11.2 - Nausea with vomiting, unspecified Is this a current diagnosis for this admission?: Yes Plan: Due to the fact that she has type 2 diabetes with poor control and now her first episode of ketoacidosis it is not unreasonable to assume that her continued nausea and aversion to eating may be due to at least in part diabetic parasympathetic (vagus nerve) autonomic neuropathy resulting in gastroparesis. With this understanding I have initiated a treatment with Pepcid 10 mg p.o. 4 times daily before meals and at bedtime, Reglan 10 mg p.o. 4 times daily before meals and at bedtime and Carafate 1 g suspension (10 mL) p.o. 4 times daily before meals and at bedtime. This treatment will be reassessed for possible use on an ongoing basis if successful in resolving her current problem. (5) Hypokalemia with shifts of fluid from extracellular to intracellular space Is this a current diagnosis for this admission?: Yes Plan: Ms. Conrad's most recent potassium is 2.6 this afternoon and as such she will require potassium repletion. This will be done utilizing IV fluids due to her poor oral intake. An IV of one half normal saline with 20 mEq of potassium per liter at 250 mL/h as ordered and her potassium will be followed on a regular basis with daily labs. Morning labs ordered include CBC, BMP, magnesium, TSH and venous blood gases. - Time Time Spent with patient: 35 or more minutes Medications reviewed and adjusted accordingly: Yes Anticipated discharge: Home Within: within 48 hours
[2018-08-08] MEDS: METOCLOPRAMIDE HCL 10 MG TABLET PO SCH ×2 (16:51→21:21)
[2018-08-08] MEDS: FAMOTIDINE 20 MG TABLET PO SCH ×2 (16:51→21:21)
[2018-08-08] MEDS: SUCRALFATE SUSP 1 GM/10 ML UDCUP PO SCH ×2 (16:51→21:20)
[2018-08-08] MEDS: INSULIN GLARGINE,HUM.REC.ANLOG 300 UNIT/3 ML INSULN.PEN SUBCUT SCH (21:21)
[2018-08-09] MEDS: ACETAMINOPHEN 325 MG TABLET PO PRN ×2 (00:58→05:31)
[2018-08-09] MEDS: POTASSI CL 20 MEQ/1/2NS 1L 20 MEQ/1,000 ML RTUINJ IV PRN ×2 (03:38→10:02)
[2018-08-09 04:20] LABS: VENOUS BLOOD BASE EXCESS 11.7 mmol/L; VENOUS BLOOD PCO2 49.9 mmHg (35-63); VENOUS BLOOD PH 7.49 (7.30-7.42)
[2018-08-09 04:24] LABS: ABSOLUTE LYMPHOCYTES (AUTO) 1.6 10^3/uL (0.5-4.7); ABSOLUTE MONOCYTES (AUTO) 0.9 10^3/uL (0.1-1.4); ABSOLUTE NEUT (AUTO) 4.8 10^3/uL (1.7-8.2); BASOPHILS % (AUTO) 0.3 % (0-2); EOSINOPHILS % (AUTO) 0.3 % (0-6); HEMATOCRIT 40.8 % (36.0-47.0); HEMOGLOBIN 14.4 g/dL (12.0-15.5); LYMPHOCYTES % (AUTO) 22.5 % (13-45); MEAN CORPUSCULAR HEMOGLOBIN 29.2 pg (27.0-33.4); MEAN CORPUSCULAR HGB CONC 35.4 g/dL (32.0-36.0); MEAN CORPUSCULAR VOLUME 83 fl (80-97); PLATELET COUNT 129 10^3/uL (150-450); RED BLOOD COUNT 4.95 10^6/uL (3.72-5.28); RED CELL DISTRIBUTION WIDTH 15.1 % (11.5-14.0); SEGMENTED NEUTROPHILS % (AUTO) 64.9 % (42-78); TOTAL CELLS COUNTED % (AUTO) 100 %; WHITE BLOOD COUNT 7.3 10^3/uL (4.0-10.5)
[2018-08-09 04:34] LABS: ANION GAP 9 (5-19); BLOOD UREA NITROGEN 2 mg/dL (7-20); CALCIUM 8.6 mg/dL (8.4-10.2); CARBON DIOXIDE 32 mmol/L (22-30); CHLORIDE 99 mmol/L (98-107); GLUCOSE 99 mg/dL (75-110); SODIUM 139.9 mmol/L (137-145)
[2018-08-09 04:45] LABS: POTASSIUM 2.6 mmol/L (3.6-5.0)
[2018-08-09] MEDS ORDERED: POTASSIUM CHLORIDE 10 MEQ CAPSULE.ER PO ONE ×2 (04:50→06:00)
[2018-08-09] MEDS ORDERED: POTASSI CL 20 MEQ/50 ML RIDER 20 MEQ/50 ML RTUPB IV ONE (04:50)
[2018-08-09] MEDS ORDERED: POTASSIUM CHLORIDE 20 MEQ/50 ML RTU IV ONE (05:45)
[2018-08-09] MEDS ORDERED: POTASSIUM CHLORIDE 20 MEQ/15 ML UDCUP PO SCH (09:30)
[2018-08-09] MEDS ORDERED: ONDANSETRON HCL INJ/PF 4 MG/2 ML SDV IV PRN (10:00)
[2018-08-09] MEDS: FAMOTIDINE 20 MG TABLET PO SCH ×4 (10:04→21:27)
[2018-08-09] MEDS: INSULIN GLARGINE,HUM.REC.ANLOG 300 UNIT/3 ML INSULN.PEN SUBCUT SCH ×2 (10:04→21:20)
[2018-08-09] MEDS: LISINOPRIL 10 MG TABLET PO SCH (10:04)
[2018-08-09] MEDS: SUCRALFATE SUSP 1 GM/10 ML UDCUP PO SCH ×4 (10:04→21:27)
[2018-08-09] MEDS: METOCLOPRAMIDE HCL 10 MG TABLET PO SCH ×4 (10:04→21:34)
--- NOTE | 2018-08-09 12:27 | Physician Advisory Note ---
Physician Advisor ProgressNote .: Pursuant to the plan for [facility], I have reviewed the medical record for this patient. Physician Advisor Statement: Wow! Impressive note r.e. medical necessity for continued hospitalization! Even morbid obesity, tho' not included w/Dx list, is captured in PE documentation. Keep up the great documentation - it's appreciated! CK
--- NOTE | 2018-08-09 12:49 | PDOC PROGRESS REPORT ---
Subjective Progress Note for:: 08/09/18 Subjective:: Arabella Conrad is a 57-year-old female who presented to the emergency room with a 2 -day history of increasing abdominal pain, nausea with vomiting and general malaise. She admitted to having associated symptoms of hyperglycemia with her home blood sugars reading high as well as polyuria and polydipsia. In the emergency room she was found to have a severe acidosis with a pH of 7.09 and a bicarbonate of 5. Her urine was ketone positive and with these findings she was admitted for treatment of her acute diabetic ketoacidosis. She was started on normal saline with 1 L/h boluses and an insulin drip per protocol. Her past medical history is positive for diabetes mellitus type 2 for which she is taking only metformin twice daily and hypertension for which she has discontinued taking her medication because she does not like to take pills. After admission she had repeat ABGs which showed only minimal improvement. She was subsequently treated with a bicarbonate drip in addition to her insulin drip and IV fluids. This worked well to improve her acidosis and bicarbonate deficit over the next several hours. 08/08/18: Arabella states that she still feels fairly nauseated but is not having any vomiting today however food does not look very appetizing to her at the present time. She denies abdominal pain, diarrhea, chest pain, dyspepsia, dysphagia, dyspnea, diaphoresis and the sensation of fever or chills. Her oral intake and her level of activity have been less than adequate. She is awake and reasonably alert however she appears to be drowsy and admits that she feels tired and sleeps very easily. She denies heat and cold intolerance upon questioning. 08/09/18: States that her nausea is substantially better today and she has not had any vomiting however she has had significant esophageal burning after taking her oral potassium. She is also had some upper gastrointestinal burning discomfort associated with the potassium. She denies all other abdominal pain, diarrhea, chest pain, dyspepsia, dyspnea, diaphoresis, fever, chills,, muscle spasms, palpitations, headache and tremors. She has been able to eat food without regurgitation or discomfort. We discussed the various ways of replacing her potassium and she is in agreement to continue using the oral potassium liquid mixed with an antacid to prevent esophageal and stomach irritation. If we can manage to increase her serum potassium by the time she has her lab work done tomorrow she should be able to go home. Reason For Visit: DKA Physical Exam Vital Signs: Temp Pulse Resp BP Pulse Ox 98.7 F 87 15 136/75 H 96 08/09/18 08:12 08/09/18 08:12 08/09/18 09:00 08/09/18 08:12 08/09/18 08:12 Intake & Output 08/07/18 08/08/18 08/09/18 23:59 23:59 23:59 Intake Total 7006 3100 2229 Output Total 2950 4310 575 Balance 4056 -1210 1654 Weight 130.3 kg 132.4 kg 134.7 kg General appearance: PRESENT: no acute distress, cooperative Head exam: PRESENT: atraumatic, normocephalic Eye exam: PRESENT: conjunctiva pink, EOMI. ABSENT: nystagmus, periorbital swelling, scleral icterus Ear exam: PRESENT: normal external ear exam. ABSENT: bleeding, drainage Mouth exam: PRESENT: neck supple, tongue midline Neck exam: ABSENT: thyromegaly, tracheal deviation Respiratory exam: PRESENT: clear to auscultation lesley, symmetrical, unlabored Cardiovascular exam: PRESENT: RRR. ABSENT: clicks, gallop, rubs Vascular exam: PRESENT: normal capillary refill. ABSENT: pallor GI/Abdominal exam: PRESENT: normal bowel sounds, soft Rectal exam: PRESENT: deferred Extremities exam: ABSENT: joint swelling, pedal edema Musculoskeletal exam: PRESENT: full ROM, normal inspection. ABSENT: deformity, dislocation Neurological exam: PRESENT: alert, oriented to person, oriented to place, oriented to time, oriented to situation, CN II-XII grossly intact. ABSENT: motor sensory deficit Psychiatric exam: PRESENT: appropriate affect, normal mood Skin exam: ABSENT: jaundice, rash, urticaria Results Laboratory Results: 08/09/18 04:04 08/09/18 04:04 08/08/18 08/08/18 08/09/18 12:35 12:35 04:04 WBC 7.3 RBC 4.95 Hgb 14.4 Hct 40.8 MCV 83 MCH 29.2 MCHC 35.4 RDW 15.1 H Plt Count 129 L Seg Neutrophils % 64.9 Lymphocytes % 22.5 Monocytes % 12.0 Eosinophils % 0.3 Basophils % 0.3 Absolute Neutrophils 4.8 Absolute Lymphocytes 1.6 Absolute Monocytes 0.9 Absolute Eosinophils 0.0 Absolute Basophils 0.0 VBG pH VBG pCO2 VBG HCO3 VBG Base Excess Sodium 138.1 Potassium 2.7 L* Chloride 99 Carbon Dioxide 30 Anion Gap 9 BUN 3 L Creatinine 0.55 Est GFR ( Amer) > 60 Est GFR (Non-Af Amer) > 60 Glucose 231 H Calcium 8.4 Magnesium TSH 2.24 08/09/18 08/09/18 04:04 04:04 WBC RBC Hgb Hct MCV MCH MCHC RDW Plt Count Seg Neutrophils % Lymphocytes % Monocytes % Eosinophils % Basophils % Absolute Neutrophils Absolute Lymphocytes Absolute Monocytes Absolute Eosinophils Absolute Basophils VBG pH 7.49 H VBG pCO2 49.9 VBG HCO3 37.0 H VBG Base Excess 11.7 Sodium 139.9 Potassium 2.6 L* Chloride 99 Carbon Dioxide 32 H Anion Gap 9 BUN 2 L Creatinine 0.59 Est GFR ( Amer) > 60 Est GFR (Non-Af Amer) > 60 Glucose 99 Calcium 8.6 Magnesium 1.6 TSH Impressions: Chest X-Ray 08/07/18 02:29 IMPRESSION: 1. No acute pulmonary process identified. Assessment & Plan - Diagnosis (1) DKA (diabetic ketoacidoses) Qualifiers: Diabetes mellitus type: type 2 Diabetes mellitus complication detail: without coma Qualified Code(s): E11.10 - Type 2 diabetes mellitus with ketoacidosis without coma Is this a current diagnosis for this admission?: Yes Plan: Ms. Paniaguas bicarbonate has returned to a normal level and her acidosis appears to be resolved however she continues to have decreased oral intake due to her nausea and that she persists in being relatively hypovolemic. Additionally she is noted to have a significant potassium deficit after the insulin drip and will require repletion of her potassium with IV fluids instead of orally due to her poor intake. IV fluid will be changed to half-normal saline with 20 mEq of KCl per liter and will be continued at 250 mL/h. Her DKA will be followed with morning laboratory. Morning laboratory for tomorrow will be a CBC, a BMP, magnesium level, a TSH level and a venous blood gas. 08/09/18: Ms. Paniaguas laboratory work shows a resolution of her DKA. She does however have a significant hypokalemia no doubt due to her insulin requirements to resolve her ketoacidosis. I suspect she has a significant intracellular potassium deficit which will require longer term replacement therapy. She is willing to start on a oral potassium plus antacid mixture 3 or 4 times daily to replete her potassium. (2) Diabetes mellitus type 2 in obese Is this a current diagnosis for this admission?: Yes Plan: Ms. Graham hemoglobin A1c was found to be 11.1 thus her diabetic regimen of metformin twice daily at home has not been adequate to control her diabetes. I will initiate therapy with Lantus at 0.3 units/kg/day subcu in divided doses given every 12 hours initially. Her sliding scale will be continued at this point during her hospitalization as she still is not eating very well. Adjustments to insulin dosage will be made as appropriate and forward. 08/09/18: Patient had Lantus started at 0.3 units/kg/day in 2 divided doses yesterday and her blood sugars have been in very good control since that time. Her fasting blood sugar this morning was 111 and her preprandial blood sugar was 179 requiring only 2 units of supplemental lispro insulin. She will be continued on Lantus at the time of discharge with either lispro insulin 3 times daily before meals or an oral hypoglycemic agent such as Amaryl. (3) Essential hypertension Is this a current diagnosis for this admission?: Yes Plan: Arabella admits that she has high blood pressure but has not been taking her medications because she does not like to take pills. She does not remember what she is supposed to be taking for her high blood pressure. A new antihypertensive regiment will be started utilizing lisinopril 20 mg p.o. daily. 08/09/18: Ms. Paniaguas blood pressure has been well controlled since initiation of therapy with lisinopril 20 mg daily. I will anticipate discharging the patient on this dose. (4) Vomiting Qualifiers: Vomiting type: unspecified Vomiting Intractability: non-intractable Nausea presence: with nausea Qualified Code(s): R11.2 - Nausea with vomiting, unspecified Is this a current diagnosis for this admission?: Yes Plan: Due to the fact that she has type 2 diabetes with poor control and now her first episode of ketoacidosis it is not unreasonable to assume that her continued nausea and aversion to eating may be due to at least in part diabetic parasympathetic (vagus nerve) autonomic neuropathy resulting in gastroparesis. With this understanding I have initiated a treatment with Pepcid 10 mg p.o. 4 times daily before meals and at bedtime, Reglan 10 mg p.o. 4 times daily before meals and at bedtime and Carafate 1 g suspension (10 mL) p.o. 4 times daily before meals and at bedtime. This treatment will be reassessed for possible use on an ongoing basis if successful in resolving her current problem. 08/09/18: Ms. Martin nausea and vomiting have improved since starting on a gastroparesis regimen. With repletion of her serum potassium I would expect continued improvement. (5) Hypokalemia with shifts of fluid from extracellular to intracellular space Is this a current diagnosis for this admission?: Yes Plan: Ms. Paniaguas most recent potassium is 2.6 this afternoon and as such she will require potassium repletion. This will be done utilizing IV fluids due to her poor oral intake. An IV of one half normal saline with 20 mEq of potassium per liter at 250 mL/h as ordered and her potassium will be followed on a regular basis with daily labs. Morning labs ordered include CBC, BMP, magnesium, TSH and venous blood gases. 08/09/18: Ms. Paniaguas potassium was again 2.6 this morning but she is having a great deal of difficulty keeping an IV in place. IV replacement is not therefore working very well and is really not practical unless his central line will be started and that would seem to be fraught with many complications that do not need to be encountered since the patient should be able to take oral potassium supplements to replenish her significant depleted intracellular potassium. Her oral potassium solution caused significant discomfort in her esophagus in the epigastrium after ingestion. She is willing to start on a oral potassium plus antacid mixture 3 or 4 times daily to replete her potassium. Daily electrolyte levels will be obtained to evaluate therapy. Her IV will be discontinued as it been essentially impossible to keep an IV site patent on this patient. - Time Time Spent with patient: 35 or more minutes Medications reviewed and adjusted accordingly: Yes Anticipated discharge: Home Within: within 48 hours
[2018-08-09] MEDS: MAG CARB/AL HYDROX/ALGINIC AC 355 ML BOTTLE PO SCH ×2 (14:01→18:06)
[2018-08-09] MEDS: POTASSIUM CHLORIDE 20 MEQ/15 ML UDCUP PO SCH ×2 (14:02→18:05)
[2018-08-10 06:29] LABS: ABSOLUTE EOSINOPHILS # (AUTO) 0.1 10^3/uL (0.0-0.6); ABSOLUTE LYMPHOCYTES (AUTO) 1.8 10^3/uL (0.5-4.7); ABSOLUTE MONOCYTES (AUTO) 0.8 10^3/uL (0.1-1.4); ABSOLUTE NEUT (AUTO) 3.2 10^3/uL (1.7-8.2); BASOPHILS % (AUTO) 0.3 % (0-2); EOSINOPHILS % (AUTO) 1.7 % (0-6); HEMATOCRIT 39.8 % (36.0-47.0); HEMOGLOBIN 13.6 g/dL (12.0-15.5); LYMPHOCYTES % (AUTO) 30.8 % (13-45); MEAN CORPUSCULAR HEMOGLOBIN 28.9 pg (27.0-33.4); MEAN CORPUSCULAR HGB CONC 34.1 g/dL (32.0-36.0); MEAN CORPUSCULAR VOLUME 85 fl (80-97); PLATELET COUNT 132 10^3/uL (150-450); RED BLOOD COUNT 4.69 10^6/uL (3.72-5.28); RED CELL DISTRIBUTION WIDTH 15.3 % (11.5-14.0); SEGMENTED NEUTROPHILS % (AUTO) 54.2 % (42-78); TOTAL CELLS COUNTED % (AUTO) 100 %; WHITE BLOOD COUNT 5.9 10^3/uL (4.0-10.5)
[2018-08-10 06:40] LABS: ANION GAP 6 (5-19); BLOOD UREA NITROGEN 3 mg/dL (7-20); CALCIUM 8.9 mg/dL (8.4-10.2); CARBON DIOXIDE 34 mmol/L (22-30); CHLORIDE 98 mmol/L (98-107); GLUCOSE 138 mg/dL (75-110); POTASSIUM 3.3 mmol/L (3.6-5.0); SODIUM 138.2 mmol/L (137-145)
[2018-08-10] MEDS: FAMOTIDINE 20 MG TABLET PO SCH ×2 (08:27→12:27)
[2018-08-10] MEDS: SUCRALFATE SUSP 1 GM/10 ML UDCUP PO SCH ×2 (08:28→12:28)
[2018-08-10] MEDS: LISINOPRIL 10 MG TABLET PO SCH (09:34)
[2018-08-10] MEDS: METOCLOPRAMIDE HCL 10 MG TABLET PO SCH ×2 (09:35→12:27)
[2018-08-10] MEDS: POTASSIUM CHLORIDE 20 MEQ/15 ML UDCUP PO SCH ×2 (09:36→13:43)
[2018-08-10] MEDS: INSULIN GLARGINE,HUM.REC.ANLOG 300 UNIT/3 ML INSULN.PEN SUBCUT SCH (09:37)
[2018-08-10] MEDS: MAG CARB/AL HYDROX/ALGINIC AC 355 ML BOTTLE PO SCH ×2 (09:37→13:43)
[2018-08-10 11:54] VITALS: BP 140/90
--- NOTE | 2018-08-10 12:19 | PDOC DISCHARGE SUMMARY ---
General - Admit/Disc Date/PCP Admission Date/Primary Care Provider: 08/07/18 06:34 Discharge Date: 08/10/18 - Discharge Diagnosis (1) DKA (diabetic ketoacidoses) Is this a current diagnosis for this admission?: Yes Summary: Ms. Graham bicarbonate has returned to a normal level and her acidosis appears to be resolved however she continues to have decreased oral intake due to her nausea and that she persists in being relatively hypovolemic. Additionally she is noted to have a significant potassium deficit after the insulin drip and will require repletion of her potassium with IV fluids instead of orally due to her poor intake. IV fluid will be changed to half-normal saline with 20 mEq of KCl per liter and will be continued at 250 mL/h. Her DKA will be followed with morning laboratory. Morning laboratory for tomorrow will be a CBC, a BMP, magnesium level, a TSH level and a venous blood gas. 08/09/18: Ms. Paniaguas laboratory work shows a resolution of her DKA. She does however have a significant hypokalemia no doubt due to her insulin requirements to resolve her ketoacidosis. I suspect she has a significant intracellular potassium deficit which will require longer term replacement therapy. She is willing to start on a oral potassium plus antacid mixture 3 or 4 times daily to replete her potassium. (2) Diabetes mellitus type 2 in obese Is this a current diagnosis for this admission?: Yes Plan: (3) Essential hypertension Is this a current diagnosis for this admission?: Yes Plan: (4) Vomiting Qualifiers: Vomiting type: unspecified Vomiting Intractability: non-intractable Nausea presence: with nausea Qualified Code(s): R11.2 - Nausea with vomiting, unspecified Is this a current diagnosis for this admission?: Yes Plan: (5) Hypokalemia with shifts of fluid from extracellular to intracellular space Is this a current diagnosis for this admission?: Yes Plan: (2) Diabetes mellitus type 2 in obese Is this a current diagnosis for this admission?: Yes Summary: Ms. rGaham hemoglobin A1c was found to be 11.1 thus her diabetic regimen of metformin twice daily at home has not been adequate to control her diabetes. I will initiate therapy with Lantus at 0.3 units/kg/day subcu in divided doses given every 12 hours initially. Her sliding scale will be continued at this point during her hospitalization as she still is not eating very well. Adjustments to insulin dosage will be made as appropriate and forward. 08/09/18: Patient had Lantus started at 0.3 units/kg/day in 2 divided doses yesterday and her blood sugars have been in very good control since that time. Her fasting blood sugar this morning was 111 and her preprandial blood sugar was 179 requiring only 2 units of supplemental lispro insulin. She will be continued on Lantus at the time of discharge with either lispro insulin 3 times daily before meals or an oral hypoglycemic agent such as Amaryl. 08/10/18: Ms. Conrad is doing exceptionally well today and is ready to be discharged. Her blood sugars have been doing quite well but still requires some supplemental preprandial insulin. After discussion we have agreed that I will send her home with Lantus 22 units subcutaneously twice daily and Amaryl 1 mg p.o. daily. Her Lantus could be converted to a single daily dose by her primary care provider if she has good diabetic control when she is seen in follow-up. (3) Essential hypertension Is this a current diagnosis for this admission?: Yes Summary: Arabella admits that she has high blood pressure but has not been taking her medications because she does not like to take pills. She does not remember what she is supposed to be taking for her high blood pressure. A new antihypertensive regiment will be started utilizing lisinopril 20 mg p.o. daily. 08/09/18: Ms. Conrad's blood pressure has been well controlled since initiation of therapy with lisinopril 20 mg daily. I will anticipate discharging the patient on this dose. (4) Vomiting Is this a current diagnosis for this admission?: Yes Summary: Due to the fact that she has type 2 diabetes with poor control and now her first episode of ketoacidosis it is not unreasonable to assume that her continued nausea and aversion to eating may be due to at least in part diabetic parasympathetic (vagus nerve) autonomic neuropathy resulting in gastroparesis. With this understanding I have initiated a treatment with Pepcid 10 mg p.o. 4 times daily before meals and at bedtime, Reglan 10 mg p.o. 4 times daily before meals and at bedtime and Carafate 1 g suspension (10 mL) p.o. 4 times daily before meals and at bedtime. This treatment will be reassessed for possible use on an ongoing basis if successful in resolving her current problem. 08/09/18: Ms. Martin nausea and vomiting have improved since starting on a gastroparesis regimen. With repletion of her serum potassium I would expect continued improvement. (5) Hypokalemia with shifts of fluid from extracellular to intracellular space Is this a current diagnosis for this admission?: Yes Summary: Ms. Paniaguas most recent potassium is 2.6 this afternoon and as such she will require potassium repletion. This will be done utilizing IV fluids due to her poor oral intake. An IV of one half normal saline with 20 mEq of potassium per liter at 250 mL/h as ordered and her potassium will be followed on a regular basis with daily labs. Morning labs ordered include CBC, BMP, magnesium, TSH and venous blood gases. 08/09/18: Ms. Graham potassium was again 2.6 this morning but she is having a great deal of difficulty keeping an IV in place. IV replacement is not therefore working very well and is really not practical unless his central line will be started and that would seem to be fraught with many complications that do not need to be encountered since the patient should be able to take oral potassium supplements to replenish her significant depleted intracellular potassium. Her oral potassium solution caused significant discomfort in her esophagus in the epigastrium after ingestion. She is willing to start on a oral potassium plus antacid mixture 3 or 4 times daily to replete her potassium. Daily electrolyte levels will be obtained to evaluate therapy. Her IV will be discontinued as it been essentially impossible to keep an IV site patent on this patient. 08/10/18: Ms. Graham potassium is up to 3.3 this morning with oral therapy which will be continued at 40 mEq of potassium p.o. twice daily for the next 16 days. Her electrolytes should be evaluated by her primary care provider on her follow-up visit in 2 weeks. (6) Morbid obesity with BMI of 40.0-44.9, adult Is this a current diagnosis for this admission?: Yes Summary: Patient was given dietary advice and counseling in general by myself and in specific by the hospital dietitian prior to her discharge. Patient's diet recommendations would be for gradual weight loss and good diabetic control utilizing a consistent carbohydrate no concentrated sweets diet of approximately 5164-8314 kimmie daily. - Additional Information Resuscitation Status: Full Code Discharge Diet: As Tolerated, Cardiac, Diabetic Discharge Activity: Activity As Tolerated, Walk Frequently Prescriptions: Insulin Glargine,Hum.rec.anlog [Lantus Insulin 100 Unit/mL] 22 unit SUBCUT Q12 28 Days #4 insuln.pen Lisinopril [Prinivil 10 mg Tablet] 20 mg PO DAILY 30 Days #30 tablet Mag Carb/Al Hydrox/Alginic AC [Gaviscon Susp 355 ml] 30 ml PO BID 16 Days #960 ml Metoclopramide HCl [Reglan 10 mg Tablet] 10 mg PO ACHS 30 Days #120 tablet Potassium Chloride [Kaon-Cl 20 Meq/15 ml Udcup] 40 meq PO BID 16 Days #64 udc Sucralfate [Carafate Susp 1 gm/10 ml Udcup] 1 gm PO ACHS 30 Days #120 udc Home Medications: Ondansetron [Zofran Odt] 4 mg PO Q6HP PRN 08/07/18 Insulin Glargine,Hum.rec.anlog [Lantus Insulin 100 Unit/mL] 22 unit SUBCUT Q12 28 Days #4 insuln.pen 08/10/18 Lisinopril 20 mg PO DAILY 30 Days #30 tablet 08/10/18 Mag Carb/Al Hydrox/Alginic AC [Gaviscon Susp 355 ml] 30 ml PO BID 16 Days #960 ml 08/10/18 Metoclopramide HCl [Reglan 10 mg Tablet] 10 mg PO ACHS 30 Days #120 tablet 08/10 Potassium Chloride [Kaon-Cl 20 Meq/15 ml Udcup] 40 meq PO BID 16 Days #64 udc Sucralfate [Carafate Susp 1 gm/10 ml Udcup] 1 gm PO ACHS 30 Days #120 udc History of Present Illness History of Present Illness: Arabella Conrad is a 57-year-old female who presented to the emergency room with a 2 -day history of increasing abdominal pain, nausea with vomiting and general malaise. She admitted to having associated symptoms of hyperglycemia with her home blood sugars reading high as well as polyuria and polydipsia. In the emergency room she was found to have a severe acidosis with a pH of 7.09 and a bicarbonate of 5. Her urine was ketone positive and with these findings she was admitted for treatment of her acute diabetic ketoacidosis. She was started on normal saline with 1 L/h boluses and an insulin drip per protocol. Her past medical history is positive for diabetes mellitus type 2 for which she is taking only metformin twice daily and hypertension for which she has discontinued taking her medication because she does not like to take pills. After admission she had repeat ABGs which showed only minimal improvement. She was subsequently treated with a bicarbonate drip in addition to her insulin drip and IV fluids. This worked well to improve her acidosis and bicarbonate deficit over the next several hours. Hospital Course Hospital Course: 08/08/18: Arabella states that she still feels fairly nauseated but is not having any vomiting today however food does not look very appetizing to her at the present time. She denies abdominal pain, diarrhea, chest pain, dyspepsia, dysphagia, dyspnea, diaphoresis and the sensation of fever or chills. Her oral intake and her level of activity have been less than adequate. She is awake and reasonably alert however she appears to be drowsy and admits that she feels tired and sleeps very easily. She denies heat and cold intolerance upon questioning. 08/09/18: States that her nausea is substantially better today and she has not had any vomiting however she has had significant esophageal burning after taking her oral potassium. She is also had some upper gastrointestinal burning discomfort associated with the potassium. She denies all other abdominal pain, diarrhea, chest pain, dyspepsia, dyspnea, diaphoresis, fever, chills,, muscle spasms, palpitations, headache and tremors. She has been able to eat food without regurgitation or discomfort. We discussed the various ways of replacing her potassium and she is in agreement to continue using the oral potassium liquid mixed with an antacid to prevent esophageal and stomach irritation. If we can manage to increase her serum potassium by the time she has her lab work done tomorrow she should be able to go home. 08/10/18: Arabella is in very good spirits today and feels like she would like to go home her potassium has risen up to 3.3 with oral therapy and she is willing to continue oral therapy at home for the next 16 days utilizing liquid potassium 40 mEq twice daily mixed with Gaviscon 60 mL. She will be started on Amaryl 1 mg p.o. daily and she will also be discharged on Lantus 22 units subcu twice daily and she is encouraged to use her glucometer and test strips at home to monitor her glucose 3 or 4 times a day. She should take these results with her to her primary care provider who can then adjust her medications as he or she would deem appropriate. Physical Exam Vital Signs: Temp Pulse Resp BP Pulse Ox 98.0 F 87 17 140/90 H 95 08/10/18 11:24 08/10/18 11:24 08/10/18 11:24 08/10/18 11:24 08/10/18 11:24 Intake & Output 08/08/18 08/09/18 08/10/18 23:59 23:59 23:59 Intake Total 3100 3029 1310 Output Total 4310 2975 1900 Balance -1210 54 -590 Weight 132.4 kg 133.6 kg 133.6 kg General appearance: PRESENT: no acute distress, cooperative, morbidly obese Head exam: PRESENT: atraumatic, normocephalic Respiratory exam: PRESENT: clear to auscultation elsley, symmetrical, unlabored Cardiovascular exam: PRESENT: RRR. ABSENT: clicks, gallop, rubs Vascular exam: PRESENT: normal capillary refill. ABSENT: pallor Extremities exam: ABSENT: joint swelling, pedal edema Musculoskeletal exam: PRESENT: full ROM, normal inspection Neurological exam: PRESENT: alert, oriented to person, oriented to place, oriented to time, oriented to situation, CN II-XII grossly intact. ABSENT: motor sensory deficit Psychiatric exam: PRESENT: appropriate affect, normal mood Skin exam: ABSENT: jaundice, rash, urticaria Results Laboratory Results: 08/10/18 05:42 08/10/18 05:42 08/10/18 08/10/18 05:42 05:42 WBC 5.9 RBC 4.69 Hgb 13.6 Hct 39.8 MCV 85 MCH 28.9 MCHC 34.1 RDW 15.3 H Plt Count 132 L Seg Neutrophils % 54.2 Lymphocytes % 30.8 Monocytes % 13.0 Eosinophils % 1.7 Basophils % 0.3 Absolute Neutrophils 3.2 Absolute Lymphocytes 1.8 Absolute Monocytes 0.8 Absolute Eosinophils 0.1 Absolute Basophils 0.0 Sodium 138.2 Potassium 3.3 L Chloride 98 Carbon Dioxide 34 H Anion Gap 6 BUN 3 L Creatinine 0.59 Est GFR ( Amer) > 60 Est GFR (Non-Af Amer) > 60 Glucose 138 H Calcium 8.9 Magnesium 1.8 Impressions: Chest X-Ray 08/07/18 02:29 IMPRESSION: 1. No acute pulmonary process identified. Qualifiers - * PATIENT BEING DISCHARGED WITH ANY OF THE FOLLOWING DIAGNOSIS: No Plan Discharge Plan: Discharged home in improved and stable condition Time Spent: Greater than 30 Minutes
[2018-08-10] MEDS: INSULIN LISPRO 100 UNIT/ML 3 ML VIAL SUBCUT PRN (12:28)
== END 2018-08-10 14:57 | disposition home or self-care (01) | DRG 638 ==
LOC: ER 01:16 → EH 06:34 → ICU 15:35 → 4S 08-09 19:43
PROVIDERS: ADMIT Internal Medicine; ATTEND Internal Medicine
DX: E11.10 Type 2 diabetes mellitus with ketoacidosis without coma (principal); Z68.41 Body mass index [BMI] 40.0-44.9, adult; I10 Essential (primary) hypertension; E87.6 Hypokalemia; E86.0 Dehydration; R11.2 Nausea with vomiting, unspecified; E66.01 Morbid (severe) obesity due to excess calories; Z79.84 Long term (current) use of oral hypoglycemic drugs; Z79.01 Long term (current) use of anticoagulants
CPT/HCPCS: 36415; 51702; 71045; 80048; 80053; 81001; 82803; 82962; 83036; 83690; 83735; 83880; 84443; 84484; 85025; 93005; 93010; 96361; 96374; 96375; 99291; J1815; J2405; J3480; J3490; J7030; J7060; S0028